=== PATIENT | female | born 1985 | race Caucasian/White ===

== ENCOUNTER 2021-05-11 13:36 | Inpatient (IN) | payer MEDICAID, OTHER, SELFPAY ==
[~2021-05-11] VITALS: Ht 162.6 cm; Wt 58.3 kg
[2021-05-11] MEDS ORDERED: BOOSTRIX/ADACEL VACCINE (DIPHTH/PERTUSS/ACELL/TETANUS) 0.5ML SYR IM ONE (14:15)
[2021-05-11 14:19] LABS: HEMATOCRIT 38.8 % (36.0-47.0); HEMOGLOBIN 13.4 g/dl (12.0-15.5); MEAN CORPUSCULAR HEMOGLOBIN 29.8 pg (27.0-33.0); MEAN CORPUSCULAR HGB CONC 34.5 g/dl (32.0-36.5); MEAN CORPUSCULAR VOLUME 86.2 fl (80.0-96.0); PLATELET COUNT, AUTOMATED 271 10^3/uL (150-450); WHITE BLOOD COUNT 7.2 10^3/uL (4.0-10.0)
[2021-05-11 14:47] LABS: HCG, SERUM QUALITATIVE NEGATIVE (NEGATIVE)
[2021-05-11 14:58] LABS: ACETAMINOPHEN LEVEL < 2.0 UG/ML (10.0-30.0); ALBUMIN 3.8 GM/DL (3.2-5.2); ALT/SGPT 245 U/L (12-78); BILIRUBIN,DIRECT 0.1 MG/DL (0.0-0.2); BILIRUBIN,TOTAL 0.3 MG/DL (0.2-1.0); BLOOD UREA NITROGEN 11 MG/DL (7-18); CARBON DIOXIDE LEVEL 26 MEQ/L (21-32); CHLORIDE LEVEL 105 MEQ/L (98-107); CREATININE FOR GFR 0.72 MG/DL (0.55-1.30); ETHYL ALCOHOL (ETHANOL) < 0.003 % (0.000-0.010); GLOMERULAR FILTRATION RATE > 60.0 (>60); GLUCOSE, FASTING 99 MG/DL (70-100); POTASSIUM SERUM 3.8 MEQ/L (3.5-5.1); SALICYLATE LEVEL < 1.7 MG/DL (5.0-30.0); SODIUM LEVEL 137 MEQ/L (136-145); TOTAL PROTEIN 7.9 GM/DL (6.4-8.2)
[2021-05-11 15:05] LABS: RSV AMPLIFICATION NEGATIVE (NEGATIVE)
[2021-05-11 17:09] LABS: AMPHETAMINES LEVEL URINE POSITIVE (NEGATIVE); BARBITURATES URINE NEGATIVE (NEGATIVE); BENZODIAZEPINES URINE NEGATIVE (NEGATIVE); CANNABINOIDS URINE POSITIVE (NEGATIVE); COCAINE METABOLITE URINE NEGATIVE (NEGATIVE); METHADONE URINE NEGATIVE (NEGATIVE); OPIATES URINE POSITIVE (NEGATIVE); PHENCYCLIDINE URINE NEGATIVE (NEGATIVE)
[2021-05-11] MEDS ORDERED: METH-1022 PO (19:21)
[2021-05-11] MEDS ORDERED: LAMO200T3 PO (19:21)
[2021-05-11] MEDS ORDERED: HOME MED LIST COMPLETE! XX SCH (22:40)
[2021-05-11] MEDS ORDERED: ACETAMINOPHEN TAB 650MG DOSE (2X325MG) PO PRN (23:05)
[2021-05-11] MEDS ORDERED: MOM 30ML SUSPENSION UDC PO PRN (23:05)
[2021-05-11] MEDS ORDERED: MAALOX 30 ML SUSP *UDC PO PRN (23:05)
[2021-05-11] MEDS ORDERED: traZODone 50 MG TAB PO PRN (23:05)
[2021-05-12 02:09] VITALS: BP 100/66
[2021-05-12] MEDS ORDERED: IBUPROFEN 800 MG TAB PO ONE (11:00)
[2021-05-12] MEDS ORDERED: hydrOXYzine 25 MG TAB PO PRN (11:05)
[2021-05-12 17:47] VITALS: BP 127/70
[2021-05-12 18:30] LABS: HEPATITIS B CORE ANTIBODY IGM NEGATIVE (NEGATIVE); HEPATITIS B SURFACE ANTIGEN NEGATIVE (NEGATIVE)
[2021-05-12 18:31] LABS: HEPATITIS C VIRUS ABY INDEX > 11.0 INDEX (<0.8)
[2021-05-12] MEDS ORDERED: SERTRALINE HCL 25 MG TABLET PO ONE (21:00)
[2021-05-12] MEDS: risperiDONE 0.5 MG TAB PO SCH (23:00)
[2021-05-13 07:18] VITALS: BP 135/88
[2021-05-13] MEDS: risperiDONE 0.5 MG TAB PO SCH (21:18)
[2021-05-13] MEDS: SERTRALINE HCL 50 MG TAB PO SCH (21:18)
[2021-05-14 06:25] VITALS: BP 141/82
[2021-05-14 18:01] VITALS: BP 113/66
[2021-05-14] MEDS: risperiDONE 0.5 MG TAB PO SCH (21:36)
[2021-05-14] MEDS: SERTRALINE HCL 50 MG TAB PO SCH (21:36)
[2021-05-15 06:21] VITALS: BP 135/70
[2021-05-15] MEDS ORDERED: SERT50TA29 PO (08:07)
[2021-05-15] MEDS ORDERED: RISP-7 PO (08:07)
== END 2021-05-15 11:10 | disposition home or self-care (01) | DRG 754 ==
LOC: M ED 13:36 → EDBD 23:02 → M ED INP 23:02 → M PSY 05-12 01:51
PROVIDERS: ADMIT Psychiatry & Neurology Psychiatry; ATTEND Psychiatry & Neurology Psychiatry
DX: F32.A Depression, unspecified (principal); F41.9 Anxiety disorder, unspecified; F11.90 Opioid use, unspecified, uncomplicated; F15.90 Other stimulant use, unspecified, uncomplicated; F17.210 Nicotine dependence, cigarettes, uncomplicated; Z56.0 Unemployment, unspecified; Z63.4 Disappearance and death of family member; R45.851 Suicidal ideations; Z20.822 Contact with and (suspected) exposure to COVID-19; Z63.8 Other specified problems related to primary support group; Z79.899 Other long term (current) drug therapy; R74.01 Elevation of levels of liver transaminase levels; S61.512A Laceration without foreign body of left wrist, initial encounter; X78.1XXA Intentional self-harm by knife, initial encounter; Y92.9 Unspecified place or not applicable